=== PATIENT | female | born 1965 | race Caucasian/White ===

== ENCOUNTER → 2018-03-19 15:55 | Outpatient (CLI) | payer BC | END | disposition home or self-care (01) | LOC: D.MRI 15:55 | DX: M54.12 Radiculopathy, cervical region (principal) ==

== ENCOUNTER → 2020-12-16 11:55 | Outpatient (CLI) | payer OTHER ==
[2020-08-24 15:13] VITALS: BMI 26.6
[~2020-12-16 11:55] MED LIST: ADVIL200 MG PO; COLACE100 MG PO; CYMBALTA20 MG PO; DIFLUCAN150 MG PO; MEDROL DOSE PACK4 MG PO; OMEPRAZOLE40 MG PO; PHAZYME 125 MG125 MG; PROAIR HFA8.5 G1 INH; TYLENOL #4 W/CO1 TAB PO
== END | disposition home or self-care (01) ==
LOC: D.MRI 11:55
PROVIDERS: ATTEND Clinical Nurse Specialist Family Health
DX: M25.552 Pain in left hip (principal)